=== PATIENT | male | born 1955 | race Hispanic/Latino ===

== ENCOUNTER 2018-08-19 09:44 | Inpatient (IN) | payer MEDICARE ==
--- NOTE | 2018-08-19 12:01 | C.PDOC ---
History Of Present Illness Patient presents to ED c/o feeling depressed/anxious and overwhelmed since his broke her hip approx 1 weeks ago. He is c/o mild pressure in head, chest, and admit he feels anxious. Patient denies SI/HI or substance abuse. PMhx: depression, HTN, hyperlipidemia, migraines. Time Seen by Provider: 08/19/18 11:54 Chief Complaint (Nursing): Anxiety History Per: Patient History/Exam Limitations: no limitations Onset/Duration Of Symptoms: Days Current Symptoms Are (Timing): Still Present Suicide/Self Injury Attempted (Context): None Modifying Factor(s): None Severity: Moderate Associated Symptoms: Anxiety, Depression. denies: Suicidal Thoughts Past Medical History Reviewed: Historical Data, Nursing Documentation, Vital Signs Vital Signs: Last Vital Signs Temp 97.9 F 08/19/18 09:51 Pulse 103 H 08/19/18 09:51 Resp 18 08/19/18 09:51 BP 148/95 H 08/19/18 09:51 Pulse Ox 95 08/19/18 09:51 - Medical History PMH: Anxiety, Depression, HTN, Hypercholesterolemia, Migraine Denies: Seizures, Sexually Transmitted Disease Surgical History: Appendectomy - [facility] Procedures GROUP PSYCHOTHERAPY (01/27/18) INDIVIDUAL PSYCHOTHERAPY, COGNITIVE-BEHAVIORAL (01/27/18) Family History: States: No Known Family Hx - Social History Hx Alcohol Use: No Hx Substance Use: No - Immunization History Hx Influenza Vaccination: Yes Hx Pneumococcal Vaccination: Yes Review Of Systems Constitutional: Negative for: Fever, Chills Cardiovascular: Positive for: Other (mild chest and head pressure/ache). Negative for: Palpitations Respiratory: Negative for: Cough, Shortness of Breath Gastrointestinal: Negative for: Nausea, Vomiting, Abdominal Pain, Diarrhea Genitourinary: Negative for: Dysuria, Hematuria Skin: Negative for: Rash Neurological: Positive for: Headache. Negative for: Weakness, Numbness, Dizziness Physical Exam - Physical Exam Appears: Well, Non-toxic, In Acute Distress (anxious appearing, speaking in full sentences) Skin: Normal Color, Warm, Dry, Other (dry, scaly appearing skin on nasolabial folds) Head: Normacephalic Eye(s): bilateral: Normal Inspection, PERRL, EOMI Oral Mucosa: Moist Cardiovascular: Rhythm Regular, No Murmur Respiratory: Normal Breath Sounds, No Rales, No Rhonchi, No Wheezing Gastrointestinal/Abdominal: Normal Exam, Bowel Sounds, Soft, No Tenderness Extremity: Normal ROM, No Pedal Edema, No Calf Tenderness Pulses: Left Dorsalis Pedis: Normal, Right Dorsalis Pedis: Normal Neurological/Psych: Oriented x3 ED Course And Treatment - Laboratory Results Result Diagrams: 08/19/18 12:00 08/19/18 12:00 ECG: Interpreted By Me, Viewed By Me (NSR 93 bpm, left axis deviation, no acute ST/T wave changes) ECG Interpretation: No Acute Changes O2 Sat by Pulse Oximetry: 95 (RA) Pulse Ox Interpretation: Normal - Other Rad CXR X-Ray: Viewed By Me, Read By Radiologist Interpretation: Accession No. : [id number]. Patient Name / ID : KHRIS ARROYO / [id number]. Exam Date : 08/19/2018 14:44:53 ( Approved ). Study Comment : Sex / Age : M / 63Y. Creator : Leila Dent MD. Dictator : Lelia Dent MD. [employer] Supervisor : Staffing Director : Leila Dent MD. Approver2 : Report Date : 08/19/2018 14:54:48. My Comment : . Date of service: 08/19/2018. PROCEDURE: CHEST RADIOGRAPH, 1 VIEW. HISTORY: MED CLEARANCE. COMPARISON: None available. FINDINGS: LUNGS: The lungs are well inflated and clear. PLEURA: No pneumothorax or pleural effusion. CARDIOVASCULAR: The heart is normal in size. No aortic atherosclerotic calcifications present. OSSEOUS STRUCTURES: Within normal limits for the patient's age. VISUALIZED UPPER ABDOMEN: Normal. OTHER FINDINGS: None. IMPRESSION: No active pulmonary disease. Progress Note: Blood work, EKG, CXR, UA, UDS ordered and reviewed. Patient initially given PO Ativan for anxiety, then 1 IV dose. 3:00PM- Patient medically cleared, pending crisis. Disposition - Disposition Forms: [employer])
[2018-08-19 12:18] LABS: BASO # 0.1 K/uL (0.0-0.2); BASO % 0.9 % (0.0-2.0); EOS # 0.1 K/uL (0.0-0.7); EOS % 1.7 % (0.0-4.0); HEMOGLOBIN 15.1 g/dL (12.0-18.0); LYMPH # 1.4 K/uL (1.0-4.3); LYMPH % 17.7 % (20.0-40.0); MEAN CELL VOLUME 88.2 fL (80.0-94.0); MEAN CORPUSCULAR HEMOGLOBIN 30.7 pg (27.0-31.0); MEAN CORPUSCULAR HGB CONC 34.9 g/dL (33.0-37.0); MEAN PLATELET VOLUME 7.8 fL (7.2-11.7); MONO # 0.5 K/uL (0.0-0.8); MONO % 5.7 % (0.0-10.0); NEUT # 5.9 K/uL (1.8-7.0); NRBC % 0.1 % (0.0-2.0); RBC 4.9 Mil/uL (4.40-5.90); RED CELL DISTRIBUTION WIDTH 13.4 % (11.5-14.5); WHITE BLOOD COUNT 7.9 K/uL (4.8-10.8)
[2018-08-19 12:28] LABS: ALB/GLOB RATIO 1.4 (1.0-2.1); ALBUMIN 4.8 g/dL (3.5-5.0); ALT/SGPT 11 U/L (21-72); AST/SGOT 44 U/L (17-59); BLOOD UREA NITROGEN 21 mg/dL (9-20); CALCIUM 10.5 mg/dl (8.6-10.4); GFR NON-AFRICAN AMERICAN > 60
[2018-08-19 13:01] LABS: URINE BILIRUBIN NEGATIVE (NEGATIVE); URINE BLOOD NEGATIVE (NEGATIVE); URINE CLARITY Clear (Clear); URINE COLOR Yellow (YELLOW); URINE GLUCOSE (UA) NORMAL (Normal); URINE LEUKOCYTE ESTERASE NEG Leu/uL (Negative); URINE PROTEIN NEGATIVE (NEGATIVE); URINE UROBILINOGEN NORMAL mg/dL (0.2-1.0)
[2018-08-19 13:20] LABS: BARBITURATES, UR NEGATIVE (NEGATIVE); BENZODIAZEPINES, UR NEGATIVE (NEGATIVE); OPIATES, UR NEGATIVE (NEGATIVE); PHENCYCLIDINE, UR NEGATIVE (NEGATIVE)
--- NOTE | 2018-08-19 14:58 | RAD ---
Date of service: 08/19/2018 PROCEDURE: CHEST RADIOGRAPH, 1 VIEW HISTORY: MED CLEARANCE COMPARISON: None available. FINDINGS: LUNGS: The lungs are well inflated and clear. PLEURA: No pneumothorax or pleural effusion. CARDIOVASCULAR: The heart is normal in size. No aortic atherosclerotic calcifications present. OSSEOUS STRUCTURES: Within normal limits for the patient's age. VISUALIZED UPPER ABDOMEN: Normal. OTHER FINDINGS: None. IMPRESSION: No active pulmonary disease.
[2018-08-19 18:57] VITALS: O2SAT 99
[2018-08-19 23:19] VITALS: RESP 18
--- NOTE | 2018-08-20 00:16 | PCM.BM ---
<Keaton Simpson - Last Filed: 08/20/18 00:14> Treatment Plan Problems - Problems identified on initial assessmt Altered Sleep Patterns Date Initiated: 08/19/18 Time Initiated: 21:25 Assessment reference: NA Status: Active Hopelessness Date Initiated: 08/19/18 Time Initiated: 21:25 Assessment reference: NA Status: Active Treatment assets and liabiliti Patient Assests: cooperative, ADL independent, good support system Patient Liabilities: poor support system - Milieu Protocol Maintain good personal hygiene: daily Encourage regular showers, daily Remind patient to perform daily oral care, every shift Assist patient to perform ADL's Conduct patient checks and document Observation sheet: Q15 minutes Maintain personal safety: every shift Educate patient to report safety concerns to staff, every shift Monitor environment for contraband/sharps Medication safety: Monitor for expected outcome, potential side effects: every shift, Assess barriers to learning: every shift, Assess readiness for medication education: every shift <Boo Holder - Last Filed: 08/22/18 10:51> - Diagnosis (1) Bipolar disorder Status: Acute Interventions: 08/22/18 10:51 * Assess/adjust medications daily and /or as needed * See patient on an individual basis 7x/week to assess level of manic behaviors and stability * Discuss risks, benefits, side effects and alternatives of medications * (2) Sedative, hypnotic or anxiolytic use disorder, severe, dependence Status: Acute Interventions: 08/22/18 10:52 * Assess 7x/week regarding severity of withdrawal * Educate regarding risks, benefits, side effects and alternatives of medications * Use Motivational Interviewing for abstinence * Use CBT for relapse prevention * Medication management for withdrawal symptoms * Encourage medication assisted treatment * <Mary Coleman - Last Filed: 08/22/18 15:41> Family Contact Family involvement: Family/SO is involved Family contact: Patient agrees to contact, Family has been contacted by patient - Goals for Treatment Patient goals for treatment: "I want to go to a medical rehab." Discharge/Continuing Care - Education Needs Education Needs: Patient Medication, Patient Diagnosis/Disease Process, Patient Coping Skills, Patient Placement options, Patient Community resources - Discharge Discharge Criteria: Free of Suicidal thoughts, Normal sleep pattern, Ability to care for self, Reduction of target symptoms Discharge to:: Other - Treatment Team Participation Discussed with Family/SO: No Was Patient/Family/SO present at Treatment Team Meeting: Yes
--- NOTE | 2018-08-20 11:33 | PCM.PSYCH ---
Initial Psychiatric Evaluation - Initial Psychiatric Evaluation Type of Admission: Voluntary Legal Status: Capacity Chief Complaint (in patient's own words): I was feeling very anxious.' History of Present Illness and Precipitating Events: Patient is a 63 year old white male, who came to the [facility] ED with increasingly anxious mood and passive suicidal ideation Patient reports history of few inpatient psychiatric hospitalizations, he was last discharged in 2017. He reports that he has been taking 6 mg of Klonopin daily for more than 10 years. As per him, he was taken off of Klonopin in 2017. He became increasingly irritable and anxious. Patient told triage that his is in rehab after breaking her hip x 2 weeks and he "just can't deal with it", and that is why he came to the hospital. He reports anxiety attacks including headaches, shortness of breath, chest pain, sweating and nausea. He reports at times racing thoughts, flight of ideas, irritability and anxiety. He also reports at times depressed mood and feelings of hopelessness and helplessness. However he denies any suicidal attempt in the past. He denies any auditory hallucinations or any paranoia. He denies any drinking or any substance abuse. Past medical history HTN, Prostate CA, Hypercholestrolimia Current Medications: Active Medications Generic Name Dose Route Start Last Admin Trade Name Freq PRN Reason Stop Dose Admin Amlodipine Besylate 5 mg 08/19/18 21:45 08/20/18 09:39 Norvasc PO 5 mg DAILY NED Administration Clonidine HCl 0.1 mg 08/19/18 22:06 08/19/18 22:17 Catapres PO 0.1 mg Q6H PRN Administration Hypertension Pneumococcal Polyvalent Vaccine 0.5 ml 08/22/18 10:00 Pneumovax 23 Vaccine IM 08/22/18 10:01 .ONCE ONE Quetiapine Fumarate 100 mg 08/19/18 22:15 08/19/18 23:39 Seroquel PO 100 mg HS NED Administration Past Psychiatric History - Past Psychiatric History Previous Treatment History: Inpatient Pertinent Medical Hx (Current Medical&Sleep Prob, Allergies): Allergies Allergy/AdvReac Type Severity Reaction Status Date / Time No Known Allergies Allergy Verified 08/19/18 10:09 Acetaminophen [Tylenol] 500 mg PO DAILY PRN 08/19/18 Ascorbic Acid [Vitamin C] 500 mg PO DAILY 08/19/18 Aspirin [Ecotrin] 81 mg PO HS 08/19/18 Brinzolamide/Brimonidine Tart [Simbrinza 0.2%-1% 8 ml] 1 drop OU BID 08/19/18 Calcium Citrate 500 mg PO DAILY 08/19/18 Fenofibrate Nanocrystallized [Tricor] 145 mg PO HS 08/19/18 Irbesartan [Avapro] 150 mg PO DAILY 08/19/18 Latanoprost/Pf [Latanoprost 0.005% Eye Drop] 1 drop OU BID 08/19/18 Multivitamin [One Daily Multivitamin] 1 each PO DAILY 08/19/18 Pravastatin Sodium [Pravachol] 20 mg PO HS 08/19/18 Sodium Chloride Nasal [place] [Garden Nasal Selfridge] 1 sprays NS PRN PRN 08/19/18 amLODIPine [Norvasc] 5 mg PO DAILY 08/19/18 Review of Systems - Review of Systems All systems: reviewed and no additional remarkable complaints except - Psychiatric Psychiatric: Anxiety, Depression, Irritability, Mood Swings, Panic Attacks, Suicidal Ideation Mental Status Examination - Personal Presentation Personal Presentation: Looks stated age - Affect Affect: Constricted, Depressed - Motor Activity Motor Activity: Calm - Reliability in Providing Information Reliability in Providing Information: Fair - Speech Speech: Organized - Mood Mood: Depressed, Anxious - Formal Thought Process Formal Thought Process: No Impairment - Obsessions/Compulsions Obsessions: No Compulsions: No - Cognitive Functions Orientation: Person, Place, Situation, Time Sensorium: Alert Attention/Concentration: Attentive Abstract Thinking: [place] Estimate of Intelligence: Below average Judgement: Imparied, as evidence by: Poor judgement, Imparied, as evidence by: Lack of insight into illness - Risk Risk: Suicidal, Diminished functioning - Strength & Assets Inventory Strength & Assets Inventory: Family support DSM 5 DX - DSM 5 DSM 5 Diagnosis: Bipolar mixed severe without psychotic features Generalized anxiety disorder Sedative/hypnotic use disorder severe Sedative/hypnotic withdrawal - Recommended/Plan of Treatment Treatment Recommendations and Plan of Treatment: Bipolar mixed severe without psychotic features Generalized anxiety disorder Sedative/hypnotic use disorder severe Sedative/hypnotic withdrawal CBT Psychoeducation Supportive therapy and group therapy Neurontin for augmentation Ativan taper Withdrawal medication including clonidine/Motrin Trazodone for insomnia Hydroxyzine for anxiety Depakote for mood - Smoking Cessation Smoking Cessation Initiated: No
[2018-08-20] MEDS ORDERED: ACETAMINOPHEN 500 MG PO PRN (12:00)
[2018-08-20] MEDS ORDERED: [UNRECOGNIZED DRUG - OTHER] NS SCH (12:00)
[2018-08-20] MEDS ORDERED: SODIUM CHLORIDE NS SCH (12:00)
[2018-08-20] MEDS: Multiple Vitamins Tab PO SCH ×2 (12:00→12:47)
[2018-08-20] MEDS: Sodium Chloride Nasal 0.65% Soln (30ml) NAS SCH ×3 (12:48→20:19)
[2018-08-20] MEDS: Divalproex 250 mg DR Tab PO SCH (18:14)
[2018-08-20] MEDS: Bacitracin/Neomycin/Polymyxin OPHT OINT OU PRN (18:15)
[2018-08-20] MEDS: Dorzolamide 2% Opht Sol 10ml OU SCH (18:15)
[2018-08-20] MEDS: Brimonidine 0.2% Opth Sol (5ml) OU SCH (18:17)
[2018-08-20] MEDS: Latanoprost 2.5 ml Opht Soln OU SCH (21:48)
[2018-08-20] MEDS: Rosuvastatin Calcium 2.5 mg Tab PO SCH (21:49)
[2018-08-21] MEDS: Sodium Chloride Nasal 0.65% Soln (30ml) NAS SCH ×3 (00:25→09:36)
[2018-08-21] MEDS ORDERED: Sodium Chloride Nasal 0.65% Soln (30ml) NAS PRN (07:35)
[2018-08-21] MEDS: Multiple Vitamins Tab PO SCH (09:22)
[2018-08-21] MEDS: Divalproex 250 mg DR Tab PO SCH ×2 (09:23→17:45)
[2018-08-21] MEDS: Dorzolamide 2% Opht Sol 10ml OU SCH ×2 (09:27→17:46)
[2018-08-21] MEDS: Brimonidine 0.2% Opth Sol (5ml) OU SCH ×2 (09:27→17:46)
[2018-08-21] MEDS: Bacitracin/Neomycin/Polymyxin OPHT OINT OU PRN ×3 (10:35→22:14)
--- NOTE | 2018-08-21 14:58 | PCM.PYCHPN ---
Psychiatric Progress Note - Psychiatric Progress Note Patient seen today, length of contact: 15 min Patient Chief Complaint: I was feeling very anxious.' Problems Identified/Issues Discussed: Patient was seen and evaluated, chart reviewed and discussed the staff. Patient reports depressed mood, at times irritability, agitation and racing thoughts. He denies any auditory and visual hallucinations and paranoia. He reports withdrawal symptoms including cramps, shakes, headaches and anxiety. However he is taking medication but denies any side effects. Supportive therapy was given Medication Change: Yes Medical Record Reviewed: Yes Mental Status Examination - Cognitive Function Orientation: Person, Place, Situation, Time Memory: Intact Attention: WNL Concentration: Poor Association: WNL Fund of Knowledge: Poor - Mood Mood: Depressed, Anxious - Affect Affect: Constricted, Depressed - Speech Speech: Soft - Formal Thought Process Formal Thought Process: No Impairment - Suicidal Ideation Suicidal Ideation: No - Homicidal Ideation Homicidal Ideation: No Goal/Treatment Plan - Goal/Treatment Plan Need for Continued Stay: Remain at risks for inpatient hospitalization Progress Toward Problem(s) and Goals/Treatment Plan: Bipolar mixed severe without psychotic features Generalized anxiety disorder Sedative/hypnotic use disorder severe Sedative/hypnotic withdrawal CBT Psychoeducation Supportive therapy and group therapy Neurontin for augmentation Ativan taper Withdrawal medication including clonidine/Motrin Trazodone for insomnia Hydroxyzine for anxiety Depakote for mood
[2018-08-21] MEDS: Latanoprost 2.5 ml Opht Soln OU SCH (21:40)
[2018-08-21] MEDS: Rosuvastatin Calcium 2.5 mg Tab PO SCH (21:40)
[2018-08-22] MEDS: Multiple Vitamins Tab PO SCH (09:36)
[2018-08-22] MEDS: Brimonidine 0.2% Opth Sol (5ml) OU SCH ×2 (09:36→18:09)
[2018-08-22] MEDS: Divalproex 250 mg DR Tab PO SCH ×3 (09:37→18:12)
[2018-08-22] MEDS: Dorzolamide 2% Opht Sol 10ml OU SCH ×2 (09:38→18:10)
[2018-08-22] MEDS: Bacitracin/Neomycin/Polymyxin OPHT OINT OU PRN ×2 (09:47→21:29)
[2018-08-22] MEDS ORDERED: Pneumococcal 23-Valent Vaccine IM ONE (10:00)
--- NOTE | 2018-08-22 10:51 | PCM.PYCHPN ---
Psychiatric Progress Note - Psychiatric Progress Note Patient seen today, length of contact: 15 min Patient Chief Complaint: I m feeling little better.' Problems Identified/Issues Discussed: Patient was seen and evaluated, chart reviewed and discussed the staff. As per the staff, pt started socializing. Patient reports some improvement in his mood depressed mood, and reports some improvement in irritability, agitation and racing thoughts. He denies any auditory and visual hallucinations and paranoia. He reports withdrawal symptoms including cramps, shakes, headaches and anxiety. However he is taking medication but denies any side effects. Supportive therapy was given Medication Change: Yes Medical Record Reviewed: Yes Mental Status Examination - Cognitive Function Orientation: Person, Place, Situation, Time Memory: Intact Attention: WNL Concentration: Poor Association: WNL Fund of Knowledge: Poor - Mood Mood: Depressed, Anxious - Affect Affect: Constricted, Depressed - Speech Speech: Soft - Formal Thought Process Formal Thought Process: No Impairment - Suicidal Ideation Suicidal Ideation: No - Homicidal Ideation Homicidal Ideation: No Goal/Treatment Plan - Goal/Treatment Plan Need for Continued Stay: Remain at risks for inpatient hospitalization Progress Toward Problem(s) and Goals/Treatment Plan: Bipolar mixed severe without psychotic features Generalized anxiety disorder Sedative/hypnotic use disorder severe Sedative/hypnotic withdrawal CBT Psychoeducation Supportive therapy and group therapy Neurontin for augmentation Ativan taper Withdrawal medication including clonidine/Motrin Trazodone for insomnia Hydroxyzine for anxiety Depakote for mood
--- NOTE | 2018-08-22 15:07 | CARD ---
APPROVED REPORT Date of service: 08/19/2018 EKG Measurement Heart [id number] <Conclusion> Normal sinus rhythm Normal ECG
[2018-08-22] MEDS ORDERED: Aluminum Hydroxide/Magnesium Hydroxide Susp (30 mL) PO PRN (16:50)
[2018-08-22] MEDS: Latanoprost 2.5 ml Opht Soln OU SCH (21:28)
[2018-08-22] MEDS: Rosuvastatin Calcium 2.5 mg Tab PO SCH (21:29)
[2018-08-22] MEDS: Petrolatum Oint Foilpak (5 gm) TOP PRN (21:43)
[2018-08-23 06:54] VITALS: TEMP 97.6
[2018-08-23] MEDS: Dorzolamide 2% Opht Sol 10ml OU SCH ×2 (09:11→18:15)
[2018-08-23] MEDS: Brimonidine 0.2% Opth Sol (5ml) OU SCH ×2 (09:11→18:14)
[2018-08-23] MEDS: Divalproex 250 mg DR Tab PO SCH ×2 (09:13→18:13)
[2018-08-23] MEDS: Multiple Vitamins Tab PO SCH (09:13)
[2018-08-23 14:49] VITALS: BP 136/97; PULSE 97
[2018-08-23] MEDS: Bacitracin/Neomycin/Polymyxin OPHT OINT OU PRN ×2 (16:23→21:56)
[2018-08-23] MEDS: Petrolatum Oint Foilpak (5 gm) TOP PRN (18:12)
[2018-08-23] MEDS: Rosuvastatin Calcium 2.5 mg Tab PO SCH (21:27)
[2018-08-23] MEDS: Latanoprost 2.5 ml Opht Soln OU SCH (21:29)
[2018-08-24] MEDS: Brimonidine 0.2% Opth Sol (5ml) OU SCH (10:12)
[2018-08-24] MEDS: Dorzolamide 2% Opht Sol 10ml OU SCH (10:13)
[2018-08-24] MEDS: Divalproex 250 mg DR Tab PO SCH (10:13)
[2018-08-24] MEDS: Multiple Vitamins Tab PO SCH (10:14)
--- NOTE | 2018-08-24 10:36 | PCM.PYCHPN ---
Psychiatric Progress Note - Psychiatric Progress Note Patient seen today, length of contact: 15 min Patient Chief Complaint: I m feeling little better.' Problems Identified/Issues Discussed: Patient was seen and evaluated, chart reviewed and discussed the staff. Patient reports improvement in his mood depressed mood, but still reports irritability, and anxiety. Per staff, her remained med seeking and asking ativan and klonopin for anxiety, around the clock. However, he was found socializing with female peers. He denies any auditory and visual hallucinations and paranoia. He reports some improvement in the withdrawal symptoms. However he is taking medication but denies any side effects. Supportive therapy was given Medication Change: Yes Medical Record Reviewed: Yes Mental Status Examination - Cognitive Function Orientation: Person, Place, Situation, Time Memory: Intact Attention: WNL Concentration: WNL Association: WNL Fund of Knowledge: Poor - Mood Mood: Depressed, Anxious - Affect Affect: Constricted, Depressed - Speech Speech: Soft - Formal Thought Process Formal Thought Process: No Impairment - Suicidal Ideation Suicidal Ideation: No - Homicidal Ideation Homicidal Ideation: No Goal/Treatment Plan - Goal/Treatment Plan Need for Continued Stay: Remain at risks for inpatient hospitalization Progress Toward Problem(s) and Goals/Treatment Plan: Bipolar mixed severe without psychotic features Generalized anxiety disorder Sedative/hypnotic use disorder severe Sedative/hypnotic withdrawal CBT Psychoeducation Supportive therapy and group therapy Neurontin for augmentation Ativan taper Withdrawal medication including clonidine/Motrin Trazodone for insomnia Hydroxyzine for anxiety Depakote for mood
--- NOTE | 2018-08-24 10:37 | PCM.PYCHDC ---
Mental Status Examination - Mental Status Examination Orientation: Person, Place, Situation, Time Memory: Intact Affect: Constricted Speech: Soft Attention: WNL Concentration: WNL Association: WNL Fund of Knowledge: WNL Formal Thought Process: No Impairment Description of patient's judgement and insight: good, fair Psychotic Thoughts and Behaviors: denies any AVH Suicidal Ideation: No Current Homicidal Ideation?: No Discharge Summary - Discharge Note Reason for Hospitalization: Patient is a 63 year old white male, who came to the [facility] ED with increasingly anxious mood and passive suicidal ideation Patient reports history of few inpatient psychiatric hospitalizations, he was last discharged in 2017. He reports that he has been taking 6 mg of Klonopin daily for more than 10 years. As per him, he was taken off of Klonopin in 2017. He became increasingly irritable and anxious. Patient told triage that his is in rehab after breaking her hip x 2 weeks and he "just can't deal with it", and that is why he came to the hospital. He reports anxiety attacks including headaches, shortness of breath, chest pain, sweating and nausea. He reports at times racing thoughts, flight of ideas, irritability and anxiety. He also reports at times depressed mood and feelings of hopelessness and helplessness. However he denies any suicidal attempt in the past. He denies any auditory hallucinations or any paranoia. He denies any drinking or any substance abuse. Consultations:: List each consultation separately and include: 1. Reason for request. 2. Findings. 3. Follow-up Summary of Hospital Course include:: 1. Description of specific treatment plan utilized for patients during their course of treatmen. 2. Summarize the time- course for resolution of acute symptoms and/or regressed behaviors. 3. Describe issues identified and worked on during hospitalization. 4. Describe medication utilized. 5. Describe medical problems identified and treated. 6. Reassessment of suicide risk Summary of Hospital Course: Patient is a 63 year old white male, who came to the [facility] ED with increasingly anxious mood and passive suicidal ideation Patient reports history of few inpatient psychiatric hospitalizations, he was last discharged in 2017. He reports that he has been taking 6 mg of Klonopin daily for more than 10 years. As per him, he was taken off of Klonopin in 2017. He became increasingly irritable and anxious. Patient told triage that his is in rehab after breaking her hip x 2 weeks and he "just can't deal with it", and that is why he came to the hospital. He reports anxiety attacks including headaches, shortness of breath, chest pain, sweating and nausea. He reports at times racing thoughts, flight of ideas, irritability and anxiety. He also reports at times depressed mood and feelings of hopelessness and helplessness. However he denies any suicidal attempt in the past. He denies any auditory hallucinations or any paranoia. He denies any drinking or any substance abuse. Past medical history HTN, Prostate CA, Hypercholestrolimia - Diagnosis (1) Bipolar disorder Current Visit: Yes Status: Acute (2) Sedative, hypnotic or anxiolytic use disorder, severe, dependence Current Visit: Yes Status: Acute - Final Diagnosis (DSM 5) Condition upon Discharge: GOOD DSM 5: Bipolar mixed severe without psychotic features Generalized anxiety disorder Sedative/hypnotic use disorder severe Sedative/hypnotic withdrawal Disposition: HOME/ ROUTINE Follow-up Treatment Plan: Bipolar mixed severe without psychotic features Generalized anxiety disorder Sedative/hypnotic use disorder severe Sedative/hypnotic withdrawal CBT Psychoeducation Supportive therapy and group therapy Neurontin for augmentation Ativan taper Withdrawal medication including clonidine/Motrin Trazodone for insomnia Hydroxyzine for anxiety Depakote for mood Prescriptions/Medication Reconciliation: Divalproex [Depakote DR] 250 mg PO BID #60 tcp Gabapentin [Neurontin] 300 mg PO BID #60 cap QUEtiapine [Seroquel] 100 mg PO HS #30 tab - Smoking Cessation Smoking Cessation Medication prescribed: No
== END 2018-08-24 12:40 | disposition home or self-care (01) | DRG 885 ==
LOC: C.ER 09:44 → C.9E 18:27 → C.5E 19:03 → C.9E 08-20 07:38 → C.5E 08-20 07:42
PROVIDERS: ADMIT Psychiatry & Neurology Psychiatry; ATTEND Psychiatry & Neurology Psychiatry
PROC: GZ3ZZZZ Medication Management (ICD-10-PCS; principal; 2018-08-19)
PROC: HZ86ZZZ Medication Management for Substance Abuse Treatment, Clonidine (ICD-10-PCS; 2018-08-19)
PROC: GZHZZZZ Group Psychotherapy (ICD-10-PCS; 2018-08-19)
PROC: GZ56ZZZ Individual Psychotherapy, Supportive (ICD-10-PCS; 2018-08-19)
DX: F31.63 Bipolar disorder, current episode mixed, severe, without psychotic features (principal); F13.239 Sedative, hypnotic or anxiolytic dependence with withdrawal, unspecified; R45.851 Suicidal ideations; F41.1 Generalized anxiety disorder; G47.00 Insomnia, unspecified; I10 Essential (primary) hypertension; E78.5 Hyperlipidemia, unspecified; E78.00 Pure hypercholesterolemia, unspecified; Z85.46 Personal history of malignant neoplasm of prostate